=== PATIENT | female | born 1975 | race Caucasian/White ===

== ENCOUNTER 2016-10-02 15:55 | Inpatient (IN) | payer OTHER ==
--- NOTE | 2016-09-28 12:34 | HP ---
Ene Thomas [id number] ADMITTING DIAGNOSES: 1. A 38-weeks . 2. Chronic hypertension. 3. Morbid obesity. 4. Induction of labor. HISTORY AND PHYSICAL: The patient is a 41-year-old 2, para 0-0-1-0 with estimated delivery date of 10/16/2016. The patient will be admitted at 38 weeks for induction of labor secondary to chronic hypertension in . Patient is of advanced maternal age. The genetic testing was negative for aneuploidy. The patient is dated by her last menstrual period and consistent with 11 week ultrasound. The patient had diabetes screening which was negative in her . The patient had had an anatomy ultrasound done at 20 weeks which showed normal anatomy. There was a 6.9 cm fibroid which was noted. At 19 weeks the patient had initial blood pressure of 140/90, subsequently blood pressures were normal until approximately 30 weeks and at that time blood pressure was 140/90. Subsequently, patient was then started on nifedipine 10 mg twice daily and was followed for her blood pressures which were subsequently well controlled until 35 weeks blood pressure was increased 150/100 and patient was started on Procardia XL 60 mg daily and subsequently blood pressures have ranged from 130's to 140's over 70's to 90's. laboratory values were normal with no proteinuria. laboratory studies were significant for a blood type of A positive with negative antibody screen. Platelet count was normal at 293. Rubella immune RPR is negative. Hepatitis B is negative and HIV screen is negative. Patient also had a negative Gonorrhea and Chlamydia screen. She is GBS positive. The patient had a negative cell free DNA genetic screen. A subsequent quad screen was elevated, risk, however, due to the negative cell free DNA screen this confirms low risk. PAST ASSISTANT DIRECTOR OF ADMISSIONS HISTORY: Patient had had a previous spontaneous last year at 10 weeks. PAST MEDICAL HISTORY: Patient is morbidly obese with chronic hypertension diagnosed with this . PAST SURGICAL HISTORY: Negative. ALLERGIES: No known drug allergies. MEDICATIONS: Include: 1. Nifedipine XL 60 mg daily. 2. vitamins. PHYSICAL EXAMINATION: GENERAL: Patient is in no apparent distress. HEART: Regular rate and rhythm. LUNGS: Clear to auscultation bilaterally. ABDOMEN: Obese and with estimated weight of 7 pounds 3 ounces. PELVIC: Cervix is 1 cm dilated, 50% effaced, soft, and posterior. EXTREMITIES: There is 1+ pitting edema. ASSESSMENT AND PLAN: This is a 39-year-old female with chronic hypertension. She is 38 weeks of and we will admit her for induction. We will start misoprostol cervical ripening. The procedure misoprostol has been reviewed including risk of hyperstimulation. We have discussed that misoprostol is not FDA approved, but traditionally used for this purpose and also we have discussed the procedure with Pitocin induction. She is group B Strep positive and we will treat in labor. We will follow her blood pressures and baseline PIH labs. Patient did have a growth ultrasound performed at 36 weeks which showed estimated weight of 2896 gm. A recent amniotic fluid index was 23. Patient has been receiving weekly stress testing which have been reassuring and reactive. JOB: [id number]
[2016-10-02] MEDS ORDERED: MISOPROSTOL 25 MCG TABLET VG SCH (17:01)
[2016-10-02] MEDS ORDERED: LACTATED RINGERS 1,000 ML IV SCH (17:01)
[2016-10-02] MEDS ORDERED: PENICILLIN G POTASSIUM 5 MMU in NS 0.9% (MINI-BAG PLUS) 100 ML IV ONE (17:01)
[2016-10-02] MEDS ORDERED: SODIUM CHLORIDE 0.9% FLUSH 10 ML ONE (17:11)
[2016-10-02] MEDS ORDERED: IV START KIT ONE (17:11)
[2016-10-02] MEDS ORDERED: LIDOCAINE 1% (PRES FREE) 30 ML VIAL ONE (17:11)
[2016-10-02] MEDS ORDERED: PUMP TUBING ONE (17:11)
[2016-10-02] MEDS ORDERED: MINERAL OIL 25 ML BOT ONE (17:11)
[2016-10-02] MEDS ORDERED: LIDOCAINE Viscous 2% 15 ML UDCUP ONE (17:11)
[2016-10-02] MEDS ORDERED: OXYTOCIN 10 UNITS/ML VIAL ONE (17:11)
[2016-10-02] MEDS ORDERED: OXYTOCIN IN LR 500 ML IV ONE (17:12)
[2016-10-02 18:19] LABS: ABSOLUTE NEUTROPHIL COUNT 9.1 K/mm3 (1.8-7.7); BASO % 0.2 % (0.2-1.0); EOS # 0.1 (0.0-0.5); EOS % 0.6 % (0.9-2.9); HEMATOCRIT 36.4 % (37.0-47.0); HEMOGLOBIN 12.2 gm/l (12.0-16.0); IMM NEUT # 0.2 K/mm3 (0-0.2); IMM NEUT% 1.6 % (0-1); LYMPH # 2.6 (1.0-4.8); LYMPH % 20.2 % (15-45); MEAN CORPUSCULAR HEMOGLOBIN 32.2 pg (27.0-31.0); MEAN CORPUSCULAR HGB CONC 33.5 g/dl (33.0-37.0); MONO # 0.8 (0.0-0.8); MONO % 6.5 % (4-12); NEUT % 70.9 % (43-75); PLATELET COUNT 260 K/mm3 (130-400); RED CELL DISTRIBUTION WIDTH 14.5 % (11.5-14.5)
[2016-10-02 18:26] VITALS: BMI 56.1
[2016-10-02 18:37] LABS: ALB/GLOB RATIO 1.2 (>1.0); ALBUMIN 3.2 gm/dL (3.5-5.7); URIC ACID 6.4 mg/dL (2.3-7.6)
[2016-10-02] MEDS ORDERED: ZOLPIDEM TARTRATE 5 MG TABLET PO PRN (19:48)
--- NOTE | 2016-10-02 19:49 | PDOC36 ---
Provider Note Subject: Patient presented for her IOL d/t chronic HTN. Dr Maldonado's original plan was for a cervidil induction, but due to maternal body habitus, we were unable to keep the fetus on the monitor without great difficulty and discomfort to the patient. Since we were unable to keep the fetus on the EFM, a hess catheter was placed through the cervix and filled with 40 cc of sterile water, thus allowing for intermittent auscultation. VSS SVE: 1.5/50/h FHT: 140/mod luis a/+accels/-decels [place]: absent A/P: 41 yo @38.0, IOL for chronic HTN -Hess balloon placed -Intermittent EFM -Regular Diet -GBS +, start PCN when active. -Cat I fetus when able to monitor.
[2016-10-02 20:40] LABS: CREATININE,RANDOM URINE 96 mg/dL
[2016-10-02] MEDS ORDERED: PENICILLIN G 3 MIL UNIT PREMIX 3 MMU in Premix (D5W) 50 ml 1 EACH IV SCH (21:00)
[2016-10-03] MEDS ORDERED: PENICILLIN G POTASSIUM 5 MMU VIAL ONE (07:11)
[2016-10-03] MEDS ORDERED: NS 0.9% (MINI-BAG PLUS) 100 ML IV ONE (07:12)
--- NOTE | 2016-10-03 07:52 | PDOC36 ---
Provider Note Subject: intrapartum note Note: Pt received mechanical dilation overnight, then bulb fell out this AM. Pt then SROM at 5am, and was 5cm dilated. Now feeling strong contractions spontaneously. FHT: 160, mod luis a, + accels, mild luis a decels TOCO: q2min SVE: 5/70/-2, vtx IUPC, FSE is placed. BP elevated 170/80 - nifedipine ordered and pt also to receive epidural - will reevaluate after epidural.
[2016-10-03] MEDS ORDERED: PENICILLIN G POTASSIUM 5 MMU in NS 0.9% (MINI-BAG PLUS) 100 ML IV ONE (08:00)
[2016-10-03] MEDS ORDERED: EPIDURAL PUMP SET ONE (08:25)
[2016-10-03] MEDS ORDERED: FENTANYL/ROPIVACAINE EPIDURAL 250 ML EP ONE (08:25)
[2016-10-03] MEDS ORDERED: NIFEDIPINE 60 MG PO SCH (09:00)
[2016-10-03] MEDS ORDERED: NALOXONE HCL 0.4 MG/ML VIAL IV PRN (09:15)
[2016-10-03] MEDS ORDERED: LACTATED RINGERS 500 ML IV PRN (09:15)
[2016-10-03] MEDS ORDERED: LACTATED RINGERS 1,000 ML IV SCH ×2 (09:15→11:00)
[2016-10-03] MEDS ORDERED: DIPHENHYDRAMINE HCL 50 MG/1 ML VIAL IV PRN (09:15)
[2016-10-03] MEDS ORDERED: SODIUM CHLORIDE 0.9% 500 ML IV PRN ×2 (09:15→14:43)
[2016-10-03] MEDS ORDERED: ONDANSETRON 4 MG/2ML 2 ML VIAL IV PRN (09:15)
[2016-10-03] MEDS ORDERED: METOCLOPRAMIDE HCL 5 MG/ML 2ML VIAL IV PRN (09:15)
[2016-10-03] MEDS ORDERED: EPHEDRINE SULFATE 50 MG/ML 1ML VIAL IV PRN (09:15)
[2016-10-03] MEDS ORDERED: NALBUPHINE HCL 20 MG/ML AMP IV PRN (09:15)
[2016-10-03] MEDS ORDERED: EPIDURAL PROCEDURE TRAY ONE ×2 (09:33→18:41)
[2016-10-03] MEDS ORDERED: ROPIVACAINE 0.5% 30 ML VIAL ONE (09:33)
[2016-10-03] MEDS ORDERED: FENTANYL/ROPIVACAINE EPIDURAL 250 ML EP SCH (10:07)
[2016-10-03] MEDS ORDERED: OXYTOCIN IN LR 500 ML IV PRN (10:50)
[2016-10-03] MEDS ORDERED: PENICILLIN G 3 MIL UNIT PREMIX 50 ML IV ONE ×3 (11:14→18:52)
[2016-10-03] MEDS: PENICILLIN G 3 MIL UNIT PREMIX 3 MMU in Premix (D5W) 50 ml 1 EACH IV SCH ×3 (11:19→19:13)
--- NOTE | 2016-10-03 11:42 | PDOC36 ---
Provider Note Subject: intrapartum note Note: Pt feeling better after epidural. FHT: 120's, mod luis a, reactive, no decels [place]: q5min SVE: deferred start pitocin augmentation as pt has spaced out after epidural
[2016-10-03] MEDS ORDERED: SODIUM CHLORIDE 0.9% 1,000 ML ONE (14:27)
[2016-10-03] MEDS ORDERED: SODIUM CHLORIDE 0.9% 1,000 ML IU SCH (14:40)
[2016-10-03] MEDS ORDERED: SODIUM CHLORIDE 0.9% FLUSH 10 ML ONE (14:45)
--- NOTE | 2016-10-03 17:19 | PDOC36 ---
Provider Note Subject: Intrapartum note Note: Variable decelerations were noted and pitocin stopped. Amnioinfusion of 500cc ns given and decels resolved. Pitocin has been restarted as ctx were spaced out to q5-6min. FHT: 130's, reactive, mod luis a, mild variable decels TOCO: q3-4 min SVE: 7/90/-2 pit at 2mu cont pitocin, pcn
[2016-10-03] MEDS ORDERED: OXYTOCIN IN LR 500 ML IV ONE (21:03)
[2016-10-03] MEDS ORDERED: LIDOCAINE 1% (PRES FREE) 30 ML VIAL SUB-Q ONE ×2 (21:10→21:11)
[2016-10-03] MEDS ORDERED: SENNOSIDES 8.6 MG TABLET PO PRN (21:30)
[2016-10-03] MEDS ORDERED: MAGNESIUM HYDROXIDE 30 ML UDCUP PO PRN (21:30)
[2016-10-03] MEDS ORDERED: LANOLIN 50 APPLIC/7G TUBE TP PRN (21:30)
[2016-10-03] MEDS ORDERED: LACTATED RINGERS 1,000 ML IV PRN (21:30)
[2016-10-03] MEDS ORDERED: BENZOCAINE/MENTHOL 60 APPLIC/BOT TP PRN (21:30)
[2016-10-03] MEDS: IBUPROFEN 800 MG TABLET PO PRN (22:36)
[2016-10-04] MEDS: IBUPROFEN 800 MG TABLET PO PRN ×3 (06:29→23:50)
[2016-10-04 06:57] LABS: HEMATOCRIT 28.8 % (37.0-47.0); HEMOGLOBIN 9.6 gm/l (12.0-16.0)
--- NOTE | 2016-10-04 08:50 | PDOC44 ---
- Subjective Day: 1 Reports Flatus, Reports Pain Tolerable, Reports , Reports Tolerating Regular Diet - Objective Temp Pulse Resp BP Pulse Ox 98.4 F 120 18 144/75 10/04/16 01:06 10/04/16 01:06 10/04/16 01:06 10/04/16 01:06 Lab Results 10/04/16 06:20 Hgb 9.6 L D Hct 28.8 L Current Medications Generic Name Dose Route Start Last Admin Trade Name Kathy PRN Reason Stop Dose Admin Benzocaine/Menthol 1 applic 10/03/16 21:30 10/03/16 22:36 Dermoplast TP 1 sprays PRN PRN Administration Patient Comfort Docusate Sodium 100 mg 10/03/16 21:30 Colace PO DAILY PRN Comfort Emollient Ointment 1 applic 10/03/16 21:30 [id number] TP PRN PRN sore nipples Ropivacaine/Fentanyl/NS 250 mls @ 0 mls/hr 10/03/16 10:07 10/03/16 09:20 Fentanyl 2 Mcg/Ml + Ropivacaine 0.125% Ep Bag EP 12 mls/hr EPI VIK Administration Protocol Per Protocol Lactated Ringer's 1,000 mls @ 100 mls/hr 10/03/16 21:30 Lactated Ringers IV .Q10H PRN Titrate per clinical situation Ibuprofen 800 mg 10/03/16 21:30 10/04/16 06:29 Motrin PO 800 mg Q8H PRN Administration Pain (Mild) Magnesium Hydroxide 30 ml 10/03/16 21:30 Milk Of Magnesia PO BEDTIME PRN Constipation Nifedipine 60 mg 10/04/16 09:00 Procardia Xl PO DAILY VIK Oxycodone/Acetaminophen 1 - 2 tab 10/03/16 21:30 Percocet 5/325 PO Q4H PRN Pain (Moderate) Senna 17.2 mg 10/03/16 21:30 Senokot PO BEDTIME PRN Comfort Sodium Chloride 10 ml 10/03/16 21:30 Normal Saline 10ml Flush IV PRN PRN IV Flush - Physical Exam General: Afebrile Psych/Mental Status: Mood/Affect Appropriate, Judgment/Insight Intact, Bonding Well Neurological: Grossly Intact, Alert, Oriented x 4 HEENT: Atraumatic, PERRLA, EOMI, Mucous membr. moist/pink Lungs: Clear to Auscultation Bilaterally, Normal Air Movement Cardiovascular: Regular Rate and Rhythm, Normal S1, Normal S2 Breast: Soft, Skin intact Fundus: Firm, Midline, At Umbilicus Abdomen: Normal Bowel Sounds Lochia: Moderate Extremities: Full ROM Skin: Normal Color, Warm, Dry, Intact - Problems:Assessment/Plan (1) Vaginal delivery Status: AcuteAssessment/Plan: PPD#1 Stable. Encourage ambulation Tolerating diet Anticipate D/C home tomorrow. H/O Chronic HTN. Continue nifedipine. Disposition: Anticipate DC Home Tomorrow
[2016-10-04] MEDS: NIFEDIPINE 60 MG PO SCH (09:21)
[2016-10-04] MEDS: OXYCODONE/ACETAMINOPHEN 5/325 MG TABLET PO PRN ×3 (09:21→19:37)
[2016-10-04] MEDS: DOCUSATE SODIUM 100 MG CAPSULE PO PRN (09:21)
--- NOTE | 2016-10-05 07:49 | PDOC39B ---
Hospital Course: ADMIT DATE: 10/02/16 DISCHARGE DATE: 10/05/16 ADMISSION DIAGNOSES: 38w , chronic hypertension, induction of labor PROCEDURES: vacuum assisted vaginal delivery HISTORY OF PRESENT ILLNESS: 41 year old G2 T0 L0 at 38 weeks 1 days presenting for induction of labor due to chronic hypertension. Patient had been on Procardia. HOSPITAL COURSE: The patient was admitted and due to difficulty in monitoring due to morbid obesity, was given mechanical dilation. By the next morning, patient was 5cm and SROM. Patient progressed with pitocin augmentation. Patient had a vacuum assisted vaginal delivery due to deep variable decelerations. Baby was male with 9/9 apgars. Blood pressure was well controlled off meds 120-140/70's. By day of discharge the patient is ambulating, eating, voiding, and passing flatus without difficulty. Pain is controlled and lochia is appropriate. She is []. Patient is discharge with rx for motrin. May discontinue procardia. f/u 2w for repeat BP check. - Physical Exam Vital Signs: Temp Pulse Resp BP Pulse Ox 98.2 F 107 18 143/72 10/04/16 19:38 10/04/16 19:38 10/04/16 19:38 10/04/16 19:38
[2016-10-05 09:47] VITALS: BP 149/80
[2016-10-05] MEDS: NIFEDIPINE 60 MG PO SCH (09:47)
[2016-10-05] MEDS: IBUPROFEN 800 MG TABLET PO PRN (09:47)
[2016-10-05] MEDS: DOCUSATE SODIUM 100 MG CAPSULE PO PRN (09:47)
[2016-10-05] MEDS ORDERED: LACTATED RINGERS 1,000 ML ONE (15:28)
--- NOTE | 2016-10-14 10:24 | PCMDEL ---
Delivery Note - Delivery Delivery (Date): 10/03/16 Gender: Male Presentation: Cephalic Position: OP Operative Delivery:: Vacuum Umbilical Cord: 3 Vessel Delayed Cord Clamping:: < 1-2 min 1 Minute Total: 9 5 Minute Total: 9 Placenta:: delivered complete EBL:: 400 Perineum:: 2nd degree laceration Suture:: 2-O and 3-O vicryl Anesthesia/Meds:: epidural, and local Comments:: Called to room - pt was FD and pushing well, baby was in ROP position by exam. Pt pushed to , however, with deep variable decelerations to 50-60's with contractions. Recommended vacuum delivery at this time for the deep variable decelerations. Indication and procedure reviewed with pt. Vacuum was placed on presenting part. With one contraction, baby delivered in entirety. Vacuum removed and noted to have asynclitic placement / presentation. Baby delivered to abdomen. After brief delay, cord clamped and cut. Placenta delivered complete with 3VC. 2nd degree laceration repaired with 2-O and 3-O vicryl. EBL 400cc. Baby M delivered in stable condition with 9/9 apgars.
== END 2016-10-05 11:57 | disposition home or self-care (01) | DRG 774 ==
LOC: FBC 15:55 → EDSTATUS 10-16 15:54
PROVIDERS: ADMIT Obstetrics & Gynecology; ATTEND Obstetrics & Gynecology
PROC: 3E0P7GC Introduction of Other Therapeutic Substance into Female Reproductive, Via Natural or Artificial Opening (ICD-10-PCS; 2016-10-02)
PROC: 10H07YZ Insertion of Other Device into Products of Conception, Via Natural or Artificial Opening (ICD-10-PCS; 2016-10-02)
PROC: 4A1H7CZ Monitoring of Products of Conception, Cardiac Rate, Via Natural or Artificial Opening (ICD-10-PCS; 2016-10-02)
PROC: 10D07Z6 Extraction of Products of Conception, Vacuum, Via Natural or Artificial Opening (ICD-10-PCS; principal; 2016-10-03)
PROC: 0KQM0ZZ Repair Perineum Muscle, Open Approach (ICD-10-PCS; 2016-10-03)
DX: O10.92 Unspecified pre-existing hypertension complicating childbirth (principal); O70.1 Second degree perineal laceration during delivery; O99.824 Streptococcus B carrier state complicating childbirth; O76 Abnormality in fetal heart rate and rhythm complicating labor and delivery; O66.5 Attempted application of vacuum extractor and forceps; O09.523 Supervision of elderly multigravida, third trimester; Z3A.38 38 weeks gestation of pregnancy; Z37.0 Single live birth